=== PATIENT | female | born 1960 | race African-American/Black ===

== ENCOUNTER 2016-07-03 09:14 | Emergency (ER) | payer SELFPAY ==
[2016-07-03 09:18] VITALS: BP 142/80; PULSE 83; TEMP 98.1; BMI 27.3
--- NOTE | 2016-07-03 09:32 | PDOC ---
History of Present Illness - General Chief Complaint: Injury Stated Complaint: RT BIG TOE INJURY Time Seen by Provider: 07/03/16 09:20 History Source: Patient Exam Limitations: No Limitations - History of Present Illness Initial Comments: 07/03/16 09:36 56yo Healthy female with no PMH other than Asthma and Migraine Headaches, No Meds, No Allergies, No Tobacco, No Alcohol, presents a few minutes after she stubbed the tip of her Right Great Toe for evaluation of the same. Isolated Injury. No other complaint(s). 07/03/16 09:40 Timing/Duration: 1/2 hour Severity: mild Modifying Factors: improves with: cold therapy Associated Symptoms: denies: denies symptoms Past History - Past Medical History Allergies/Adverse Reactions: Allergies Allergy/AdvReac Type Severity Reaction Status Date / Time No Known Allergies Allergy Verified 07/03/16 09:15 Home Medications: Ambulatory Orders Montelukast Na [Singulair -] 10 mg PO HS 07/08/13 Fluticasone/Vilanterol [Breo Ellipta 100-25 Mcg INH] 1 each IH BID 07/03/16 Topiramate [Topamax] mg PO BID 07/03/16 Asthma: Yes Other medical history: MIGRAINE HEADACHES - Psycho/Social/Smoking Cessation Hx Anxiety: No Suicidal Ideation: No Smoking History: Never smoked Have you smoked in the past 12 months: No Number of Cigarettes Smoked Daily: 0 Hx Alcohol Use: (occasional) Drug/Substance Use Hx: No Substance Use Type: None Hx Substance Use Treatment: No Review of Systems - Review of Systems Able to Perform ROS?: Yes Is the patient limited British proficient: No Constitutional: No: Symptoms Reported HEENTM: No: Symptoms Reported Respiratory: No: Symptoms reported Cardiac (ROS): No: Symptoms Reported ABD/GI: No: Symptoms Reported : No: Symptoms Reported Musculoskeletal: Yes: See HPI Integumentary: Yes: See HPI Neurological: No: Symptoms reported Psychiatric: No: Anxiety, Depression Endocrine: No: Symptoms Reported Hematologic/Lymphatic: No: Symptoms Reported All Other Systems: Reviewed and Negative *Physical Exam - Vital Signs Last Vital Signs Temp Pulse Resp BP Pulse Ox 98.1 F 83 18 142/80 100 07/03/16 09:15 07/03/16 09:15 07/03/16 09:15 07/03/16 09:15 07/03/16 09:15 - Physical Exam General Appearance: Yes: Nourished. No: Apparent Distress HEENT: positive: EOMI, IVANIA, Normal ENT Inspection, Normal Voice Neck: positive: Normal Thyroid, Supple. negative: Tender Respiratory/Chest: positive: Lungs Clear, Normal Breath Sounds. negative: Chest Tender Cardiovascular: positive: Regular Rhythm, Regular Rate. negative: JVD, Murmur Extremity: positive: Normal Capillary Refill, Normal Inspection, Tender, Other ( Appearance of the foot/toes is normal. There is tenderness to touch to the Great toe itself). negative: Coldness, Cyanosis, Delayed Capillary Refill ED Treatment Course - RADIOLOGY Radiology Studies Ordered: Category Date Time Status FOOT-RIGHT [RAD] Stat Radiology 07/03/16 09:21 Ordered *DC/Admit/Observation/Transfer Diagnosis at time of Disposition: Contusion Qualifiers: Encounter type: initial encounter Contusion area: foot Laterality: right Qualified Code(s): S90.31XA - Contusion of right foot, initial encounter - Discharge Dispostion Disposition: HOME Condition at time of disposition: Stable Admit: No - Patient Instructions Printed Discharge Instructions: DI for Contusion Additional Instructions: Icylin- Your Xrays did not show a fracture, So, keep your foot elevated as much as possible, use an Ice pack and take motrin for pain. See your regular PCP in the office next week. Santosh- Dr. Popeye Vences - Post Discharge Activity Work/School Note: Back to Work
== END 2016-07-03 10:11 | disposition home or self-care (01) ==
LOC: FER 09:14
DX: S90.31XA Contusion of right foot, initial encounter (principal); W22.01XA Walked into wall, initial encounter; Y93.9 Activity, unspecified; Y92.9 Unspecified place or not applicable; J45.909 Unspecified asthma, uncomplicated; G43.909 Migraine, unspecified, not intractable, without status migrainosus
CPT/HCPCS: 73630-TC-RT; 99283-25